=== PATIENT | female | born 2000 ===

== ENCOUNTER 2021-01-27 21:17 | Emergency (ER) | payer OTHER ==
[~2021-01-27] VITALS: Ht 162.6 cm; Wt 60.3 kg
[2021-01-27] MEDS ORDERED: DIPH,PERTUSS(ACELL),TET VAC/PF 0.5 ML IM-VACC ONE ×2 (22:30→23:45)
[2021-01-27] MEDS ORDERED: LIDOCAINE-MPF 1%, 5ML INFIL ONE (22:30)
--- NOTE | 2021-01-27 23:20 | NUR ---
SALES MERCHANDISING SPECIALIST: PT. TO ROOM FROM LOBBY AT THIS TIME.
[2021-01-27] MEDS ORDERED: LIDOCAINE-MPF 1%, 5ML ONE (23:45)
[2021-01-28] MEDS ORDERED: BACITRACIN ZINC OINT 500U/GM, 0.9 GM ONE (00:12)
[2021-01-28 00:40] VITALS: BP 112/65
== END 2021-01-28 00:42 | disposition home or self-care (01) ==
LOC: ED 23:59
DX: S01.21XA Laceration without foreign body of nose, initial encounter (principal); Y04.8XXA Assault by other bodily force, initial encounter; Y93.89 Activity, other specified; Y92.009 Unspecified place in unspecified non-institutional (private) residence as the place of occurrence of the external cause; Y99.8 Other external cause status
CPT/HCPCS: 12002; 12011; 90471; 90715; 99283